=== PATIENT | female | born 1965 | race Caucasian/White ===

== ENCOUNTER → 2016-07-13 | Outpatient (CLI) | payer OTHER ==
[~2016-07-13] MED LIST: GADOBUTROL 10 ML VIAL IVP ONE
--- NOTE | 2016-07-13 11:01 | MR ---
MRI Abdomen, Without and With Contrast Indication: Follow up left adrenal gland mass. Technique: Axial single shot fast spin echo, axial and coronal 2D T2-weighted FIESTA, axial T1 dual echo, pre- and postcontrast dynamic T1 fat-suppressed LAVA imaging, and diffusion-weighted imaging in the axial plane. 7 mL of Gadavist were uneventfully intravenously administered. Comparison: CT of the chest, June 29, 2014, MRI of the abdomen, August 28, 2014, and noncontras t CT of the abdomen, June 17, 2015. Findings: The round well-circumscribed left adrenal gland mass has minimally increased in volume sin ce June 2014 and now measures 3.3 x 3.1 cm in the axial plane (previously 3.0 x 2.6 cm in 2013). The majority of the left adrenal gland mass drops in signal on the [id number] T1 sequence character istic of an adrenal adenoma. Mild stippled heterogeneous hyperintense T2 signal throughout the nodule is similar to August 2014. A subtle rounded 1.1 x 1.0 cm focus in the superior aspect of the nodul e does not suppress on the [id number] T1 sequence and has minimal heterogeneous T2 signal and minim al delayed enhancement. The right adrenal gland is normal. The liver, spleen, pancreas, gallbladder, and bowel pattern are normal. No lymphadenopathy, free flui d, or mesenteric edema has developed. Bone marrow signal is normal. No pleural effusions. Impression: 1. The atypical left adrenal adenoma has minimally increased in size since June 2014. Recommend c ontinued surveillance with follow up noncontrast CT or MRI in 6 months and repeat biochemical assay. 2. Otherwise, normal study.
== END ==
LOC: FIMAGING 07:27
PROVIDERS: ATTEND Urology
DX: E27.9 Disorder of adrenal gland, unspecified (principal)
CPT/HCPCS: A9585

== ENCOUNTER → 2016-11-14 | Outpatient (CLI) | payer OTHER | LOC: BMCIMAGING 10:04 | PROVIDERS: ATTEND Podiatrist Foot & Ankle Surgery | DX: M79.672 Pain in left foot (principal); M77.32 Calcaneal spur, left foot ==

== ENCOUNTER → 2017-06-15 | Outpatient (CLI) | payer OTHER | LOC: BMCIMAGING 07:36 | PROVIDERS: ATTEND Obstetrics & Gynecology Gynecology | DX: Z12.31 Encounter for screening mammogram for malignant neoplasm of breast (principal); Z80.3 Family history of malignant neoplasm of breast | CPT/HCPCS: G0202 ==

== ENCOUNTER → 2017-06-20 | Outpatient (CLI) | payer OTHER | LOC: BMCIMAGING 10:34 | PROVIDERS: ATTEND Internal Medicine | DX: N64.89 Other specified disorders of breast (principal) | CPT/HCPCS: G0206 ==

== ENCOUNTER → 2017-08-29 | Outpatient (CLI) | payer OTHER | LOC: FIMAGING 06:52 | PROVIDERS: ATTEND Urology | DX: Z09 Encounter for follow-up examination after completed treatment for conditions other than malignant neoplasm (principal); E27.9 Disorder of adrenal gland, unspecified | CPT/HCPCS: A9585 ==

== ENCOUNTER → 2018-06-18 | Outpatient (CLI) | payer OTHER | LOC: BMCIMAGING 08:58 | PROVIDERS: ATTEND Internal Medicine | DX: Z12.31 Encounter for screening mammogram for malignant neoplasm of breast (principal) ==